=== PATIENT | female | born 1965 | race Caucasian/White ===

== ENCOUNTER 2016-09-19 10:25 | Emergency (ER) | payer OTHER ==
[~2016-09-19] VITALS: Ht 162.6 cm; Wt 78.0 kg
[2016-09-19 10:28] VITALS: BP_SYST 121
[2016-09-19] MEDS ORDERED: KETOROLAC TROMETHAMINE 60 MG/2 ML VIAL IM ONE (10:45)
[2016-09-19 11:50] VITALS: BP_SYST 125
== END 2016-09-19 11:50 | disposition home or self-care (01) ==
LOC: SED 10:25
DX: S39.012A Strain of muscle, fascia and tendon of lower back, initial encounter (principal); J45.909 Unspecified asthma, uncomplicated; X58.XXXA Exposure to other specified factors, initial encounter; Y93.89 Activity, other specified; Y92.89 Other specified places as the place of occurrence of the external cause; Y99.8 Other external cause status
CPT/HCPCS: 72110; 99284; J1885; 96372

== ENCOUNTER 2016-12-19 08:52 | Outpatient (CLI) | payer OTHER | END 2016-12-19 19:54 | disposition home or self-care (01) | LOC: SMI 08:52 | DX: M47.897 Other spondylosis, lumbosacral region (principal) | CPT/HCPCS: 72148 ==